=== PATIENT | female | born 1960 | race Two or more races ===

== ENCOUNTER 2023-09-22 12:55 | Emergency (ER) | payer OTHER, SELFPAY ==
[2023-09-22 13:04] VITALS: BP 135/89; PULSE 93; RESP 16; TEMP 36.8; O2SAT 97; BMI 28.5
--- NOTE | 2023-09-22 13:16 | XR_ITS ---
The [address] [address] Patient Name: TIM GONZALEZ MRN: [id number] date: 1960 Sex: F Assigned Patient Location: ER Current Patient Location: ER Accession/Order Number: [id number] Exam Date: 09/22/2023 13:35 Report Date: 09/22/2023 13:56 At the request of: JIMBO CHING Procedure: XR knee RT 3V EXAM: XR knee RT 3V HISTORY: fall COMPARISON: Right knee study dated 01/07/2016 TECHNIQUE: 3 views of the right knee were obtained. FINDINGS: There is transverse fracture of the near midportion of the patella with significant approximately 3.8 cm separation of the fracture fragments. Fracture may be comminuted with additional smaller fracture line suggested in the distal major fracture fragment, difficult to say with certainty. No obvious distal femoral fracture. No obvious tibial or fibular fracture visualized. Large moderate soft tissue swelling anteriorly, no convincing evidence of large suprapatellar joint effusion. XR/XR knee RT 3V IMPRESSION: Right knee study demonstrates patellar fracture as described, significant separation of fracture fragments as noted. Follow-up as needed. Electronically authenticated by: RACHAEL CELESTE Date: 09/22/2023 13:56
[2023-09-22 13:42] VITALS: BP 138/88; PULSE 78; RESP 18; O2SAT 99
--- NOTE | 2023-09-22 17:56 | ED_ITS ---
HPI - General Adult General Chief complaint: Extremity Injury, Lower Stated complaint: FELL NEEDS XRAY Time Seen by Provider: 09/22/23 13:16 Source: patient Mode of arrival: Wheelchair History of Present Illness HPI narrative: Patient is a 62-year-old female who is presenting to the ER today with chief complaint of right knee pain, swelling, ecchymosis. Patient had a right knee injury on August 22 and August 23. Patient had twisting and falling down motions 2 days in a row in August, she has some pain to the right knee at that time, swelling, but it improved. Patient had a new traumatic injury 2 days ago. Patient had lost her footing, and had a another twisting motion of her right knee, falling down, hitting her right knee against a hard surface. Patient injury happened 2 days ago. Patient has moderate amount of swelling, ecchymosis, effusion, no obvious signs of hemarthrosis. No secondary signs of infection, no obvious deformity. Patient is very guarded with range of motion to the right knee secondary to pain and swelling. Patient has a friend with her. Patient's friend drove and can drive her home as well. Patient does have access to a cane or walker at home, does not want to use crutches. Patient has no other injury after her fall 2 days ago. All systems are negative except as noted/marked. All systems reviewed and otherwise negative. Nurses note and vital signs reviewed and patient is not hypoxic. General: The patient appears in moderate distress secondary to pain.. Patient is resting uncomfortably on cart. Patient is not toxic, lethargic, or listless Skin: Warm, dry, no pallor noted. There is no rash noted. No petechiae, purpura. Head: Normocephalic, atraumatic Eye: Normal conjunctiva, no drainage, EOMI. PERRL Ears, Nose, Mouth, and Throat: oral mucosa is moist. Nares patent. Mouth without vesicles. Cardiovascular: Regular Rate and Rhythm, no murmur, gallop, rub Respiratory: Patient is in no distress, no accessory muscle use, lungs are clear to auscultation, no wheezing, rales or rhonchi Back: non-tender, GI: no tenderness Musculoskeletal: Patient has full range of motion of all of the extremities except to his right knee. Patient is holding his right knee in approximately 15 to 20 degrees of flexion, patient has moderate swelling, mild ecchymosis, limited range of motion secondary to pain. No obvious signs of hemarthrosis. Mild to moderate pain with varus and valgus stress. Patient has full range of motion of right ankle and foot without difficulty. Patient does have some mild ecchymosis to the right big toe, she has very minimal tenderness to palpation to the distal phalanx of the right big toe. Patient has no right hip pain. Patient has no other extremity complaints, no motor, sensory, or focal neurological deficits Neurological: A&O x4, normal speech Psychiatric: Cooperative Related Data Previous Rx's Medication Instructions Recorded oxycodone-acetaminophen 5 mg-325 1 tab PO Q4H PRN pain 12 days #10 09/22/23 mg tablet (Percocet) tabs Allergies Allergy/AdvReac Type Severity Reaction Status Date / Time latex Allergy Severe Verified 09/22/23 13:10 Exam Constitutional Vital Signs, click to edit/add: Last Vital Signs Temp 98.3 F 09/22/23 13:04 Pulse 78 09/22/23 13:42 Resp 18 09/22/23 13:42 BP 138/88 09/22/23 13:42 Pulse Ox 99 09/22/23 13:42 O2 Del Method Room Air 09/22/23 13:04 Course Vital Signs Vital signs: Vital Signs Temperature 98.3 F 09/22/23 13:04 Pulse Rate 93 H 09/22/23 13:04 Respiratory Rate 16 09/22/23 13:04 Blood Pressure 135/89 09/22/23 13:04 Pulse Oximetry 97 09/22/23 13:04 Oxygen Delivery Method Room Air 09/22/23 13:04 Temperature 98.3 F 09/22/23 13:04 Pulse Rate 78 09/22/23 13:42 Respiratory Rate 18 09/22/23 13:42 Blood Pressure 138/88 09/22/23 13:42 Pulse Oximetry 99 09/22/23 13:42 Oxygen Delivery Method Room Air 09/22/23 13:04 Medical Decision Making MDM Narrative Medical decision making narrative: Patient has evidence of right patellar fracture. Case was discussed several times with Tramaine Talbert PA-C. Tramaine Talbert PA-C discussed this case with Dr. Jeffries, orthopedic surgeon. Patient can be discharged, patient has a walker at home that she can use. Patient was given a Percocet prior to discharge along with ice. Patient takes 2 baby aspirin daily, no other blood thinners. Patient will follow with Dr. Jeffries and has a scheduled appointment at 9:00PM. Patient has seen Dr. Can in the past, patient's mother has had surgery with Dr. Jeffries as well. Procedure note: Patient was placed in Nadeem wrap and right knee immobilizer long to the right knee/leg. Splint was assisted with . the patient was neurovascularly intact before and after the splint was placed. the affected bones/injured area had proper alignment in a splint. Education on splint care at home was given at bedside. Patient and family have no questions at discharge. Patient has a walker at home that she can use. Patient was given a prescription for Percocet to use if needed. Patient was told that she can do 0.5 to 1 tablet every 4-6 hours as needed for pain, patient understands this, no questions at discharge. Importance of icing with 20 minutes on, 20 minutes off was discussed several times at bedside as well. Patient feels safe going home, patient has only 3 steps to get up in the house, patient had discussion of sitting on her buttocks and scooting herself up the steps if needed Discharge Plan Discharge Chief Complaint: Extremity Injury, Lower Clinical Impression: Fracture of right patella, Contusion of knee, right Patient Disposition: Home, Self-Care Time of Disposition Decision: 14:12 Condition: Fair Prescriptions / Home Meds: New oxycodone-acetaminophen [Percocet] 5-325 mg tablet 1 tab PO Q4H PRN (Reason: pain) 12 Days Qty: 10 0RF Instructions: Contusion in Adults (ED), Patellar Fracture (ED), P.R.I.C.E. Treatment (ED), Knee Immobilizer (ED) Additional Instructions: Dr. Benedict will see you in the office on Monday, 9 AM. Wear your Nadeem wrap and knee immobilizer at all times except ice and shower. Use walker, weigh tbearing as tolerated. Follow-up with Dr. Benedict on Monday, 9 AM, you have an appointment scheduled. You do not have an appointment on Monday any longer. Use stool softeners as needed to help with consistent bowel movements if taking Percocet. Do not take Percocet with Tylenol, you could actually take too much Tylenol together in 24 hours. Stand Alone Forms: Portal Instructions Referrals: Macy Lyons [Primary Care Provider] - 1 week Discharge Date/Time: 09/22/23 14:48
== END 2023-09-22 14:48 | disposition home or self-care (01) ==
PROVIDERS: Emergency Provider Emergency Medicine
DX: S82.001A Unspecified fracture of right patella, initial encounter for closed fracture (principal); S80.01XA Contusion of right knee, initial encounter; W18.30XA Fall on same level, unspecified, initial encounter
CPT/HCPCS: 73562; 99283